=== PATIENT | female | born 1990 | race Two or more races ===

== ENCOUNTER 2018-05-17 22:28 | Emergency (ER) | payer SELFPAY ==
[~2018-05-17] VITALS: Ht 154.9 cm; Wt 72.6 kg
[2018-05-17] MEDS ORDERED: NKM (22:54)
--- NOTE | 2018-05-17 23:15 | NUR ---
ED Nurse Note: pt walked in due to abdominal pain x 3, denies nvd. pt cardiac assessment is within define limits with S1 and S2 noted, cap refill is less than 3 on assessment and pulse and sensation noted on all 4 extremities. pt abdominal assessment is within define limits with normal active bowl sounds noted.
--- NOTE | 2018-05-17 23:22 | Emergency Room Report ---
History of Present Illness General Chief Complaint: Abdominal Pain Source: Patient Present Illness HPI Patient is a 28-year-old female presented after increased abdominal pain. Patient reports of increased epigastric pain and left upper quadrant abdominal pain this is worse after eating. Patient had reportedly been having no improvement with Pepto-Bismol. She had been having sharp pain associated with increased abdominal distention and bloating. She denies any fever. Patient denies being . Allergies: Coded Allergies: No Known Allergies (Unverified , 05/17/18) Patient History Last Menstrual Period: mar Now: No Reviewed Nursing Documentation: PMH: Agreed; PSxH: Agreed Nursing Documentation-PMH Past Medical History: No Stated History Review of Systems All Other Systems: negative except mentioned in HPI Physical Exam Vital Signs Date Time Temp Pulse Resp B/P (MAP) Pulse Ox O2 Delivery O2 Flow Rate FiO2 05/17/18 22:48 98.2 64 16 114/58 98 Room Air Sp02 EP Interpretation: reviewed, normal General Appearance: normal inspection, well appearing, no apparent distress, alert, GCS 15, obese Head: atraumatic ENT: normal ENT inspection, hearing grossly normal, normal voice Neck: normal inspection, full range of motion, supple, no bony tend Respiratory: normal inspection, lungs clear, normal breath sounds, no respiratory distress, no retraction, no wheezing Cardiovascular #1: regular rate, rhythm, no edema Gastrointestinal: normal inspection, normal bowel sounds, non tender, soft, no guarding, no hernia Genitourinary: no CVA tenderness Musculoskeletal: normal inspection, back normal, normal range of motion Neurologic: normal inspection, alert, oriented x3, responsive, family specialist III-XII nml as tested, speech normal Psychiatric: normal inspection, judgement/insight normal, mood/affect normal Skin: normal inspection, normal color, no rash Medical Decision Making Last Vital Signs Date Time Temp Pulse Resp B/P (MAP) Pulse Ox O2 Delivery O2 Flow Rate FiO2 05/17/18 22:48 98.2 64 16 114/58 98 Room Air Laurent Milan MD May 17, 2018 23:22
[2018-05-17 23:26] VITALS: BP 114/58
[2018-05-17] MEDS ORDERED: Mylanta II UD 30ml ORAL ONE (23:30)
[2018-05-17] MEDS ORDERED: Lidocaine 2% Visc 15ml soln ORAL ONE (23:30)
[2018-05-17] MEDS ORDERED: Dicyclomine HCl 10mg/5ml oral soln ORAL ONE (23:30)
[2018-05-17 23:47] LABS: BASOPHILS % (AUTO) 0.8 % (0.0-2.0); EOSINOPHILS % (AUTO) 3.4 % (0.0-3.0); HEMATOCRIT 35.4 % (37.0-47.0); HEMOGLOBIN 12.1 G/DL (12.0-16.0); LYMPHOCYTES % (AUTO) 42.9 % (20.0-45.0); MEAN CORPUSCULAR VOLUME 92 FL (80-99); MONOCYTES % (AUTO) 9.7 % (1.0-10.0); NEUTROPHILS % (AUTO) 43.2 % (45.0-75.0); PLATELET COUNT 241 K/UL (150-450); RED BLOOD COUNT 3.85 M/UL (4.20-5.40); RED CELL DISTRIBUTION WIDTH 11.4 % (11.6-14.8); WHITE BLOOD COUNT 6.6 K/UL (4.8-10.8)
[2018-05-18 00:01] LABS: APPEARANCE,URINE CLEAR; BILIRUBIN, URINE NEGATIVE (NEGATIVE); COLOR,URINE PALE YELLOW; GLUCOSE, URINE (UA) NEGATIVE (NEGATIVE); KETONES,URINE NEGATIVE (NEGATIVE); LEUKOCYTE ESTERASE ,URINE NEGATIVE (NEGATIVE); NITRITE,URINE NEGATIVE (NEGATIVE); PH,URINE 7 (4.5-8.0); PROTEIN,URINE NEGATIVE (NEGATIVE); UROBILINOGEN,URINE NORMAL MG/DL (0.0-1.0)
[2018-05-18 00:11] LABS: INR 0.9 (0.9-1.1)
[2018-05-18 00:17] LABS: ALANINE AMINOTRANSFERASE 22 U/L (12-78); ALBUMIN 3.5 G/DL (3.4-5.0); ALBUMIN/GLOBULIN RATIO 0.8 (1.0-2.7); ALKALINE PHOSPHATASE 68 U/L (46-116); ANION GAP 6 mmol/L (5-15); ASPARTATE AMINO TRANSFERASE 15 U/L (15-37); BILIRUBIN,TOTAL 0.3 MG/DL (0.2-1.0); CALCIUM 8.3 MG/DL (8.5-10.1); CARBON DIOXIDE 28 MMOL/L (21-32); CHLORIDE 105 MMOL/L (98-107); CREATININE 0.6 MG/DL (0.55-1.30); SODIUM 139 MMOL/L (136-145)
[2018-05-18 00:26] LABS: BLOOD UREA NITROGEN 14 mg/dL (7-18)
[2018-05-18 01:09] VITALS: BP 119/67
[2018-05-18] MEDS ORDERED: DICYCLOMINE HCL10 MG PO (01:18)
[2018-05-18] MEDS ORDERED: PRILOSEC OTC20 MG ORAL (01:18)
[2018-05-18 01:25] VITALS: BP 119/67
--- NOTE | 2018-05-18 01:26 | NUR ---
ER DISCHARGE NOTE: Patient is cleared to be discharged per ERMD, pt is aox4, on room air, with stable vital signs. pt was given dc and prescription instructions, pt was able to verbalize understanding, pt id band and iv site removed without complications. pt is able to ambulate with steady gait. pt took all belongings.
--- NOTE | 2018-05-18 12:13 | Diagnostic Imaging Report ---
Indication:Abdominal pain Technique: Grayscale and duplex Doppler imaging of the abdomen performed. Comparison: None Findings: The liver is unremarkable. The gallbladder is unremarkable. The demonstrated part of the pancreas, aorta and IVC show no abnormalities. Both kidneys appear unremarkable. The spleen is normal in size. There is no biliary ductal dilatation identified. Doppler evaluation of the main portal vein shows patency. There is no ascites. No hydronephrosis seen. CBD is 2.2 mm. Impression: No acute findings.
== END 2018-05-18 01:30 | disposition home or self-care (01) ==
LOC: EMR 23:15
DX: R10.13 Epigastric pain (principal); R10.12 Left upper quadrant pain
CPT/HCPCS: 36415; 76700; 80053; 81003; 81025; 83690; 85025; 85610; 85730; 96374; 99284; J2405